=== PATIENT | male | born 1980 | race Two or more races ===

== ENCOUNTER 2024-09-02 16:20 | Emergency (ER) | payer OTHER ==
[~2024-09-02] VITALS: Ht 185.4 cm; Wt 83.5 kg
[2024-09-02] MEDS ORDERED: ORPHENADRINE CITRATE 30 MG/ML AMPUL IM ONE (20:30)
[2024-09-02] MEDS ORDERED: ACETAMINOPHEN 500 MG GEL..CAP PO ONE (20:30)
[2024-09-02] MEDS ORDERED: NORFLEX100MG PO (21:39)
[2024-09-02] MEDS ORDERED: DICLOFENAC SODI50 MG PO (21:39)
== END 2024-09-02 22:01 | disposition home or self-care (01) ==
LOC: ER 16:20
DX: M94.0 Chondrocostal junction syndrome [Tietze] (principal); R07.89 Other chest pain; M62.838 Other muscle spasm

== ENCOUNTER 2024-12-29 06:10 | Emergency (ER) | payer OTHER ==
[~2024-12-29] VITALS: Ht 185.4 cm; Wt 83.9 kg
[~2024-12-29 06:10] MED LIST: DICLOFENAC SODI50 MG PO; NORFLEX100MG PO
== END 2024-12-29 09:25 | disposition home or self-care (01) ==
LOC: ER 06:11
DX: S52.021A Displaced fracture of olecranon process without intraarticular extension of right ulna, initial encounter for closed fracture (principal); Y93.73 Activity, racquet and hand sports; Y93.89 Activity, other specified